=== PATIENT | male | born 1985 | race Caucasian/White ===

== ENCOUNTER 2018-01-19 06:39 | Day surgery (SDC) | END 2018-01-19 13:44 | disposition home or self-care (01) ==

== ENCOUNTER 2018-11-21 12:58 | Emergency (ER) | payer OTHER ==
[~2018-11-21] VITALS: Ht 185.4 cm; Wt 89.7 kg
[~2018-11-21 12:58] MED LIST: AMOX1TAB10 PO; BACI28.34 TOP; DOXY100T20 PO; IBUP-1542 PO
[2018-11-21 13:14] VITALS: BP 119/64; PULSE 89; RESP 16; Ht 185.4 cm; Wt 89.7 kg
[2018-11-21] MEDS ORDERED: DIPHTH/TET/ACEL PERTUSS (ADULT) 0.5 ML VIAL IM* ONE (14:00)
--- NOTE | 2018-11-21 14:46 | ERD ---
ER Documentation Chief Complaint Chief Complaint pt got bit dog x 2-4 hours ago HPI 33-year-old male presents with dog bite to left lower extremity that was sustained today from a stranger dog [place] the [place]. He believes his tetanus vaccination is not up-to-date. He is ambulatory. No numbness or tingling. ROS All systems reviewed and are negative except as per history of present illness. Medications Home Meds Active Scripts Amoxicillin/Potassium Clav (Amox-Clav 875-125 mg Tablet) 875-125 mg Tab, 1 TAB PO BID for 7 Days, #14 TAB Prov:ZAY MEYER PA-C 11/21/18 Allergies Allergies: Coded Allergies: No Known Allergies (Verified Allergy, Unknown, 11/21/18) PMhx/Soc History of Surgery: Yes (left leg sx, hernia) Anesthesia Reaction: No Hx Neurological Disorder: No Hx Respiratory Disorders: No Hx Cardiac Disorders: No Hx Psychiatric Problems: No Hx Miscellaneous Medical Probl: No Hx Alcohol Use: Yes (socially) Hx Substance Use: Yes (occational marijuana ) Hx Tobacco Use: No Smoking Status: Never smoker FmHx Family History: No diabetes Physical Exam Vitals Vital Signs Date Temp Pulse Resp B/P (MAP) Pulse Ox O2 O2 Flow FiO2 Time Delivery Rate 11/21/18 98.2 89 16 119/64 98 13:14 (82) Physical Exam Const: No acute distress Head: Atraumatic Eyes: Normal Conjunctiva ENT: Normal External Ears, Nose and Mouth. Neck: Full range of motion. No meningismus. Resp: Clear to auscultation bilaterally Cardio: Regular rate and rhythm, no murmurs Lower Extremity -left: Skin: Checkmark shaped laceration to left inner thigh approximately 3 inches in length Compartments: Soft Motor: Full active range of motion hip/knee/ankle/foot Sensation: Intact to light touch FDWS/MF/LF/P surfaces. Bones: Nontender pelvis/knee/proximal tibia/ malleoli/foot Joints: No effusion or laxity Pulses/Perfusion: 2+ DP, Capillary refill < 2 seconds Results 24 hrs Current Medications Medications Dose Sig/Saima Start Time Status Last (Trade) Ordered Route PRN Stop Time Admin Dose Reason Admin Diphtheria/ 0.5 ml ONCE ONCE 11/21/18 DC 11/21/18 Tetanus/Acell IM* 14:00 14:02 Pertussis 11/21/18 14:01 (Adacel) Procedures/MDM Laceration Repair by me: Anesthesia: 1% lidocaine locally Location: Left lower leg Tendon/Joint/Nerves: No injury Foreign body: None detected after copious irrigation and exploration Technique: Simple Interrupted Sutures Complexity: No subcutaneous sutures/mucosal repair/edge excision Post Closure Length: 3 in Patient's bleeding was easily controlled in the department and there is no indication of anemia. No evidence of compartment syndrome, neurologic injury, vascular injury, open joint, tendon laceration, or foreign body. Patient is appropriate for outpatient follow up. 48 hour wound check. Scar minimization instructions given. Patient started on Augmentin. Patient counseled regarding my diagnostic impression and care plan. Prior to discharge all questions answered. Pt agrees with treatment plan and understands strict return precautions. Pt is instructed to follow up with primary care provider within 24-48 hours. Precautionary instructions provided including instructions to return to the ER if not improving or for any worsening or changing symptoms or concerns. Departure Diagnosis: Primary Impression: Dog bite Condition: Stable Patient Instructions: Dog Bite Additional Instructions: Follow up in 2 days in your clinic for wound check. Follow up with your physician to remove the stitches:For Face wounds 5-7 days.For Elsewhere on the body 7-10 days. ZAY MEYER PA-C Nov 21, 2018 14:46
== END 2018-11-21 14:58 | disposition home or self-care (01) ==
LOC: FTE 12:58
DX: S71.112A Laceration without foreign body, left thigh, initial encounter (principal); W54.0XXA Bitten by dog, initial encounter; Y92.830 Public park as the place of occurrence of the external cause; Z23 Encounter for immunization
CPT/HCPCS: 12002; 90471; 90715; Z7502

== ENCOUNTER 2018-11-23 13:33 | Emergency (ER) | payer OTHER ==
[~2018-11-23] VITALS: Wt 78.0 kg
[2018-11-23 13:46] VITALS: BP 138/67; PULSE 76; RESP 18
--- NOTE | 2018-11-23 13:54 | ERD ---
ER Documentation Chief Complaint Chief Complaint LEFT LEG WOUND CHECK HPI 33-year-old male is here for wound check 2 days of dog bite to left lower extremity that was repaired by me. He is taking antibiotics as prescribed. Is been cleaning it with iodine. Ambulatory. No fevers. No bleeding or drainage. ROS All systems reviewed and are negative except as per history of present illness. Medications Home Meds Active Scripts Amoxicillin/Potassium Clav (Amox-Clav 875-125 mg Tablet) 875-125 mg Tab, 1 TAB PO BID for 7 Days, #14 TAB Prov:ZAY MEYER PA-C 11/21/18 Allergies Allergies: Coded Allergies: No Known Allergies (Verified Allergy, Unknown, 11/21/18) PMhx/Soc History of Surgery: Yes (left leg sx, hernia) Anesthesia Reaction: No Hx Neurological Disorder: No Hx Respiratory Disorders: No Hx Cardiac Disorders: No Hx Psychiatric Problems: No Hx Miscellaneous Medical Probl: No Hx Alcohol Use: Yes (socially) Hx Substance Use: Yes (occational marijuana ) Hx Tobacco Use: No FmHx Family History: No diabetes Physical Exam Vitals Vital Signs Date Temp Pulse Resp B/P (MAP) Pulse Ox O2 O2 Flow FiO2 Time Delivery Rate 11/23/18 98.1 76 18 138/67 99 13:46 (90) Physical Exam Const: No acute distress Head: Atraumatic Eyes: Normal Conjunctiva ENT: Normal External Ears, Nose and Mouth. Neck: Full range of motion. No meningismus. Resp: Clear to auscultation bilaterally Cardio: Regular rate and rhythm, no murmurs Skin: Healing laceration on left inner thigh with sutures in place, no significant surrounding erythema, no bleeding or drainage Procedures/MDM Wound is healing appropriately. Continue antibiotics as prescribed. 7 days for suture removal. Patient counseled regarding my diagnostic impression and care plan. Prior to discharge all questions answered. Pt agrees with treatment plan and understands strict return precautions. Pt is instructed to follow up with primary care provider within 24-48 hours. Precautionary instructions provided including instructions to return to the ER if not improving or for any worsening or changing symptoms or concerns. Departure Diagnosis: Primary Impression: Visit for wound check Condition: Stable Patient Instructions: Wound Check, Lac F/U (No Infection) Additional Instructions: Call your primary care doctor TOMORROW for an appointment during the next 1-2 days.See the doctor sooner or return here if your condition worsens before your appointment time. ZAY MEYER PA-C Nov 23, 2018 13:54
== END 2018-11-23 13:52 | disposition home or self-care (01) ==
LOC: E/R 13:33
DX: Z48.01 Encounter for change or removal of surgical wound dressing (principal)
CPT/HCPCS: 99281

== ENCOUNTER 2018-11-26 15:40 | Emergency (ER) | payer OTHER ==
[~2018-11-26] VITALS: Ht 188 cm; Wt 91.9 kg
[2018-11-26 15:42] VITALS: BP 123/66; PULSE 84; RESP 18; Ht 188 cm; Wt 91.9 kg
--- NOTE | 2018-11-26 15:59 | ERD ---
ER Documentation Chief Complaint Chief Complaint suture removal HPI 33-year-old male presents to ED for well. He states he was seen here a few days ago after a dog bit him on his left inner thigh. He denies any fevers, chills, discharge, warm to touch, or any signs of infection. He states that he was told to come back 7 to 10 days however some suture already got caught on something and ripped off. He is wanting for us to remove the other sutures at this time. He is taking Augmentin on outpatient basis appropriately. He is keeping the wound clean. ROS All systems reviewed and are negative except as per history of present illness. Medications Home Meds Active Scripts Bacitracin* (Bacitracin Zinc Oint*) 28.35 Gm Oint, 1 APPLIC TOP TID for 7 Days, TUB APPLY TO Prov:KENYETTA LUCIANO PA-C 11/26/18 Amoxicillin/Potassium Clav (Amox-Clav 875-125 mg Tablet) 875-125 mg Tab, 1 TAB PO BID for 7 Days, #14 TAB Prov:ZAY MEYER PA-C 11/21/18 Allergies Allergies: Coded Allergies: No Known Allergies (Verified Allergy, Unknown, 11/21/18) PMhx/Soc History of Surgery: Yes (left leg sx, hernia) Anesthesia Reaction: No Hx Neurological Disorder: No Hx Respiratory Disorders: No Hx Cardiac Disorders: No Hx Psychiatric Problems: No Hx Miscellaneous Medical Probl: No Hx Alcohol Use: Yes (socially) Hx Substance Use: Yes (occational marijuana ) Hx Tobacco Use: No FmHx Family History: No diabetes Physical Exam Vitals Vital Signs Date Temp Pulse Resp B/P (MAP) Pulse Ox O2 O2 Flow FiO2 Time Delivery Rate 11/26/18 97.8 84 18 123/66 99 15:42 (85) Physical Exam Const: No acute distress Head: Atraumatic Resp: Clear to auscultation bilaterally Cardio: Regular rate and rhythm, Abd: Soft, non tender, non distended. Skin: On left thigh, 6 sutures present over bite lesion that is large. Appears to be healing well and scabbing over. No discharge, not warm to touch, nontender. Neur: Awake and alert Psych: Normal Mood and Affect Procedures/MDM ED COURSE: The patient was stable throughout ED course. I kept the patient informed of laboratory and diagnostic imaging results throughout the ED course. PROCEDURES: Suture Removal by me: Sutures removed with tweezers and scissors without incident. Wound shows no evidence of infection, foreign body, neurologic injury, vascular injury, open joint or tendon laceration. Patient to follow up PRN. MEDICAL DECISION MAKING: Patient is a 33-year-old male presenting for suture removal. I have low suspicion for cellulitis, deep tracking infection, sepsis, lymphangitis. Catherine chance wanted his sutures removed early. I advised him that is usually recommended for us to keep sutures in place for 7 to 10 days however he states that he wanted the sutures removed today because 1 or 2 of him already got caught on something and ripped out. I removed 6 sutures from his left inner thigh without any complications. Patient was told to keep the wound clean. He was discharged with bacitracin. He was told to follow-up on as-needed basis to the emergency department. He was told to follow-up with his primary care provider in 1 to 2 days. All questions answered. Patient agreed with the plan Vital signs were reviewed. Patient is afebrile. Patient was not hypoxic. Patient was hemodynamically stable. Patient was told to follow up with primary care for further care and management. PRESCRIPTION: Bacitracin DISCHARGE: At this time, patient is stable for discharge and outpatient management. I have instructed the patient to follow-up with their primary care physician in 1-2 days. I have discussed with the patient the possibility of needing to see a specialist for further workup and imaging studies if symptoms persist. I have instructed the patient to promptly return to the ER for any new or worsening symptoms including increased pain, fever, nausea, vomiting, weakness or LOC. The patient expressed understanding of and agreement with this plan. All questions were answered. Home care instructions were provided. Disclaimer: Inadvertent spelling and grammatical errors are likely due to EHR/dictation software use and do not reflect on the overall quality of patient care. Also, please note that the electronic time recorded on this note does not necessarily reflect the actual time of the patient encounter. Departure Diagnosis: Primary Impression: Encounter for removal of sutures Condition: Fair Patient Instructions: Staple Removal, No Complication Referrals: COMMUNITY CLINICS YOU HAVE RECEIVED A MEDICAL SCREENING EXAM AND THE RESULTS INDICATE THAT YOU DO NOT HAVE A CONDITION THAT REQUIRES URGENT TREATMENT IN THE EMERGENCY DEPARTMENT. FURTHER EVALUATION AND TREATMENT OF YOUR CONDITION CAN WAIT UNTIL YOU ARE SEEN IN YOUR DOCTORS OFFICE WITHIN THE NEXT 1-2 DAYS. IT IS YOUR RESPONSIBILITY TO MAKE AN APPOINTMENT FOR FOLOW-UP CARE. IF YOU HAVE A PRIMARY DOCTOR --you should call your primary doctor and schedule an appointment IF YOU DO NOT HAVE A PRIMARY DOCTOR YOU CAN CALL OUR PHYSICIAN REFERRAL HOTLINE AT IF YOU CAN NOT AFFORD TO SEE A PHYSICIAN YOU CAN CHOSE FROM THE FOLLOWING [facility] [address] [facility] [address] [facility] [facility] [address] [facility] [address] [facility] [facility] [address] [facility]. [facility] [address] [facility]. [facility] YOU HAVE RECEIVED A MEDICAL SCREENING EXAM AND THE RESULTS INDICATE THAT YOU DO NOT HAVE A CONDITION THAT REQUIRES URGENT TREATMENT IN THE EMERGENCY DEPARTMENT. FURTHER EVALUATION AND TREATMENT OF YOUR CONDITION CAN WAIT UNTIL YOU ARE SEEN IN YOUR DOCTORS OFFICE WITHIN THE NEXT 1-2 DAYS. IT IS YOUR RESPONSIBILITY TO MAKE AN APPOINTMENT FOR FOLOW-UP CARE. IF YOU HAVE A PRIMARY DOCTOR --you should call your primary doctor and schedule and appointment IF YOU DO NOT HAVE A PRIMARY DOCTOR YOU CAN CALL OUR PHYSICIAN REFERRAL HOTLINE AT . IF YOU CAN NOT AFFORD TO SEE A PHYSICIAN YOU CAN CHOSE FROM THE FOLLOWING [facility] [address] [place] [address] [facility] [address] [place] [address] [facility] [address] [place] [address] Additional Instructions: Call your primary care doctor TOMORROW for an appointment during the next 1-2 days.See the doctor sooner or return here if your condition worsens before your appointment time. KENYETTA LUCIANO PA-C Nov 26, 2018 15:59
== END 2018-11-26 16:00 | disposition home or self-care (01) ==
LOC: E/R 15:40
DX: Z48.02 Encounter for removal of sutures (principal)
CPT/HCPCS: 99281

== ENCOUNTER 2018-12-10 11:56 | Emergency (ER) | payer OTHER ==
[~2018-12-10] VITALS: Ht 188 cm; Wt 93.3 kg
[2018-12-10 12:04] VITALS: BP 127/68; PULSE 65; RESP 17; Ht 188 cm; Wt 93.3 kg
== END 2018-12-10 13:07 | disposition home or self-care (01) ==
LOC: E/R 11:56
DX: S71.152D Open bite, left thigh, subsequent encounter (principal); W54.0XXD Bitten by dog, subsequent encounter
CPT/HCPCS: 99283

== ENCOUNTER 2019-01-19 13:14 | Emergency (ER) | payer OTHER ==
[~2019-01-19] VITALS: Ht 188 cm; Wt 91.2 kg
[~2019-01-19 13:14] MED LIST changes: +BACITUD TOP; +DOXY-214 PO; -DOXY100T20 PO; +IBUP-1561 PO
[2019-01-19 13:19] VITALS: BP 125/67; PULSE 76; RESP 18; Ht 188 cm; Wt 91.2 kg
== END 2019-01-19 15:47 | disposition home or self-care (01) ==
LOC: FTE 13:14
DX: S90.511A Abrasion, right ankle, initial encounter (principal); X58.XXXA Exposure to other specified factors, initial encounter; Y92.9 Unspecified place or not applicable
CPT/HCPCS: 99282